=== PATIENT | female | born 1940 | race Caucasian/White ===

== ENCOUNTER → 2024-01-03 14:04 | Outpatient (REF) | payer MEDICARE, OTHER, SELFPAY | LOC: RAD 14:04 | PROVIDERS: ATTENDING PHYSICIAN Student in an Organized Health Care Education/Training Program | DX: M16.0 Bilateral primary osteoarthritis of hip (principal) | CPT/HCPCS: 73522 ==

== ENCOUNTER 2024-04-20 09:09 | Emergency (ER) | payer MEDICARE, OTHER, SELFPAY ==
[2024-04-20 09:26] VITALS: BP 122/63
[2024-04-20 10:00] VITALS: BP 122/63
--- NOTE | 2024-04-20 10:39 | ED.GENMED ---
History of Present Illness
General
Chief Complaint: Fall
Time Seen by Provider: 04/20/24 10:12
History of Present Illness
History of Present Illness:
83 female with history of A-fib on Eliquis presents to the emergency department for ration of left shoulder pain after a fall 3 days ago. States she fell while out with the dog at night, not exactly sure how she fell. Does not recall the event
went well. Since that time she has felt well and denies any headaches or vision changes. She was able to go for 7 mile walk yesterday without difficulty. Awoke today with left shoulder discomfort and swelling and is unable to raise the shoulder,
overhead. Denies any falls. Specifically denies headache, vision changes, chest pain, shortness of breath, extremity paresthesias, nausea, or vomiting
Past History
Past History
ED Past Medical History: Arrthythmia, HTN and Valvular disease
ED Past Surgical History: Appendectomy, Cardiac (CABG), Gynecological (Tubel ) and Orthopedic (R Rotator cuff repair)
Social History
Tobacco: Non-smoker
Alcohol: None
Personal:
Living: with family
Review of Systems
Review of Systems
Allergies reviewed?: Yes
All Other Systems: ROS reviewed and negative except as documented in HPI and ROS
Phy Exam
Physical Exam
Physical Exam:
GEN: Well appearing, NAD, WDWN
HEENT: Oral mucosa moist, no scleral icterus
Cardiac: Regular rate
Lung: No respiratory distress, no tachypnea
MSK: Mild swelling and ecchymosis to the left shoulder, no gross deformity, range of motion limited secondary to pain.
Skin: Good color, no pallor or jaundice, no rashes
Neuro: AO x3, cranial nerves II through XII grossly intact, no focal deficits to bilateral upper or lower extremities
Psych: Calm, cooperative
Course
Orders/Labs/Results
Orders:
Orders
04/20/24 10:39
CR Shoulder - Left Min 2 View* Urgent
Comment:
Reason For Exam: fall pain
Vital Signs
Initial and Last Documented VS:
Initial Vital Signs
Temp Pulse Resp BP Pulse Ox
98.0 F 70 16 122/63 98
04/20/24 09:26 04/20/24 09:26 04/20/24 09:26 04/20/24 09:26 04/20/24 09:26
Last Documented Vital Signs
Temp Pulse Resp BP Pulse Ox
98.0 F 63 16 90/72 98
04/20/24 09:26 04/20/24 12:00 04/20/24 09:26 04/20/24 12:00 04/20/24 09:26
MDM/Problems Addressed
MDM/Problems Addressed:
Patient is nonfocal from a neurologic standpoint, no external signs of head trauma. Left shoulder x-rays markable. I suspect she sustained a mild contusion but has had a progressive worsening hematoma secondary to blood thinner use. Discussed
supportive care and return parameters
*Critical Care Note
Total Time (30-74mins, 75-104mins- exclusive of procedures): Not Applicable
ED Attending Note
-
Portions of this chart may have been created with voice recognition software.� Occasional wrong word or��sound alike� substitutions may have occurred due to the inherent limitations of voice recognition software.
Discharge Plan
Departure
Patient Disposition: Home (Routine Discharge)
Date of Disposition: 04/20/24
Time of Disposition: 11:39
Patient with high blood pressure during this ER visit?: No
Discharge Problem:
Contusion of left shoulder
Instructions: Contusion (DC)
Prescriptions:
No Action
Eliquis 5 MG tablet
5 mg PO BID
diltiazem HCl 360 MG capsule,extended release 24hr
360 mg PO DAILY Qty: 30 5RF
betamethasone valerate 15 GM ointment
1 applic TP BIDPRN PRN (Reason: vaginal)
alendronate 70 MG tablet
70 mg PO SA
furosemide 20 MG tablet
20 mg PO DAILY
potassium chloride 10 MEQ tablet,ER particles/crystals
10 meq PO DAILY
cholecalciferol (vitamin D3) [Vitamin D3] 25 MCG capsule
25 mcg PO DAILY
amiodarone 200 mg Tablet
200 mg PO DAILY
Referrals:
Deja Regan CRNP [Family Provider] -
Activity Restrictions/Additional Instructions:
Ice the shoulder often
Take Tylenol as needed for pain
Interventions
Interventions:
*Risk Screen - Suicide Last Done: 04/20/24 11:36
*General Assessment Last Done: 04/20/24 11:36
*Neglect/Abuse Screening Last Done: 04/20/24 11:36
ED- Fall Risk Assessment Last Done: 04/20/24 11:37
*ED COVID-19 Vaccine History Last Done: 04/20/24 11:36
*Nursing Disposition Last Done: 04/20/24 12:04
ED-Musculoskeletal Assessment Last Done: 04/20/24 11:38
ED- Neurological Assessment Last Done: 04/20/24 11:38
ED-Skin Assessment Last Done: 04/20/24 11:38
Discharge Date and Time
Discharge Date/Time: 04/20/24 12:04
Print Language: ALBANIAN
[2024-04-20 11:35] VITALS: BMI 18.6
[2024-04-20 12:00] VITALS: BP 90/72
== END 2024-04-20 12:04 | disposition home or self-care (01) ==
LOC: EMR 09:09
PROVIDERS: EMERGENCY PHYSICIAN Emergency Medicine; FAMILY PHYSICIAN Nurse Practitioner Family
DX: S40.012A Contusion of left shoulder, initial encounter (principal); W19.XXXA Unspecified fall, initial encounter; M25.512 Pain in left shoulder; I10 Essential (primary) hypertension; I38 Endocarditis, valve unspecified; I48.91 Unspecified atrial fibrillation; Z79.01 Long term (current) use of anticoagulants; Z90.49 Acquired absence of other specified parts of digestive tract; Z95.1 Presence of aortocoronary bypass graft
CPT/HCPCS: 99283; 73030

== ENCOUNTER → 2024-10-18 12:47 | Outpatient (REF) | payer MEDICARE, OTHER, SELFPAY | LOC: PAVMRI 12:47 | PROVIDERS: ATTENDING PHYSICIAN Student in an Organized Health Care Education/Training Program; FAMILY PHYSICIAN Nurse Practitioner Family | DX: M48.062 Spinal stenosis, lumbar region with neurogenic claudication (principal); M54.59 Other low back pain; M54.16 Radiculopathy, lumbar region; M47.816 Spondylosis without myelopathy or radiculopathy, lumbar region; M54.6 Pain in thoracic spine | CPT/HCPCS: 72146; 72148 ==

== ENCOUNTER → 2024-12-16 08:48 | Outpatient (REF) | payer MEDICARE, OTHER, SELFPAY | LOC: RAD 08:48 | PROVIDERS: ATTENDING PHYSICIAN Nurse Practitioner Primary Care | DX: E04.1 Nontoxic single thyroid nodule (principal) | CPT/HCPCS: 76536 ==

== ENCOUNTER → 2024-12-23 08:49 | Outpatient (REF) | payer MEDICARE, OTHER, SELFPAY | LOC: RSP 08:49 | PROVIDERS: ATTENDING PHYSICIAN Student in an Organized Health Care Education/Training Program; FAMILY PHYSICIAN Internal Medicine Geriatric Medicine | DX: I34.0 Nonrheumatic mitral (valve) insufficiency (principal); I07.1 Rheumatic tricuspid insufficiency; I44.0 Atrioventricular block, first degree | CPT/HCPCS: 94727; 94729; 88738; 94010 ==

== ENCOUNTER → 2024-12-26 13:13 | Outpatient (REF) | payer MEDICARE, OTHER, SELFPAY | LOC: WDC 13:13 | PROVIDERS: ATTENDING PHYSICIAN Nurse Practitioner Primary Care; REFERRING PHYSICIAN Student in an Organized Health Care Education/Training Program | DX: M81.0 Age-related osteoporosis without current pathological fracture (principal); I34.0 Nonrheumatic mitral (valve) insufficiency; I44.0 Atrioventricular block, first degree; Z12.31 Encounter for screening mammogram for malignant neoplasm of breast | CPT/HCPCS: 71046 ==

== ENCOUNTER → 2025-07-02 14:53 | Outpatient (REF) | payer MEDICARE, OTHER, SELFPAY | LOC: RCS 14:53 | PROVIDERS: ATTENDING PHYSICIAN Student in an Organized Health Care Education/Training Program; FAMILY PHYSICIAN Nurse Practitioner Primary Care | DX: I34.0 Nonrheumatic mitral (valve) insufficiency (principal); I07.1 Rheumatic tricuspid insufficiency | CPT/HCPCS: 93306 ==